=== PATIENT | male | born 1955 | race Caucasian/White ===

== ENCOUNTER 2023-03-17 00:41 | Day surgery (SDC) | payer MEDICARE, OTHER, SELFPAY ==
[2023-03-03 16:02] VITALS: BMI 27.3
--- NOTE | 2023-03-16 12:53 | PM.HPGS ---
History of Present Illness History of Present Illness Consent: Risks, benefits, and alternatives have been discussed and questions answered. Patient agrees to proceed with procedure. Chief complaint: neoplasm screening Narrative: Fabian Valle is a 67 year old male Was referred for colon cancer screening. His last colonoscopy was Five years ago.. He has family history of gastrointestinal malignancy, his father had GI neoplasm. Review of Systems Review of Systems: All systems reviewed & are unremarkable except as noted in HPI and below PMFSH Past Medical History Medical History BMI 27.0-27.9,adult BMI 30.0-30.9,adult Changing skin lesion Elevated lipids Nasal congestion Screening for lipid disorders Screening for prostate cancer Family History Family History Father Family history of malignant neoplasm of stomach Family history of coronary artery disease Mother Alcoholism Mental health disorder Sibling No problems noted. Social History Social History Smoking packs per day: 1 Smoking cigarettes per day: 20.0 Years smoked: 3 Smoking pack-years: 3.00 Smoking status: Former smoker Tobacco type: cigarettes Second hand tobacco smoke exposure: Yes Alcohol intake: never Substance use: never Substance use type: does not use Lack of Transportation: No Lack of Food: Never True Current Housing: I Have Housing Concerned About Future Housing: No Difficulty Paying Gas/Electric Bills: No Difficulty Paying for Meds: No Currently Unemployed: No Education: High School Diploma/GED Difficulty w/ Childcare or Family Care: No Living arrangements: with family Occupation/Education: retired 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 Gender identity (if verbalized by the patient): Male Spiritual care concerns: No Meds Home Medications and Allergies Home Medications Medication Instructions Recorded Confirmed Type No Home Medications 06/16/20 03/17/23 History Allergies Allergy/AdvReac Type Severity Reaction Status Date / Time No Known Allergies Allergy Verified 03/17/23 11:18 Exam Const: General: alert Orientation/consciousness: patient oriented x3 Resp: Auscultation: clear to auscultation bilaterally Cardio: Rhythm: regular rhythm GI: GI Palp: Yes Soft to palpation and No Tenderness to palpation present (GI) Neuro: General: patient oriented x3 Assessment and Plan Assessment and plan (1) Colon cancer screening: Code(s): Z12.11 - Encounter for screening for malignant neoplasm of colon Status: Acute Assessment and Plan: Colonoscopy with possible biopsy or polypectomy or cautery or injection of substances.
[2023-03-17 11:19] VITALS: BP 115/75; PULSE 75; RESP 16; TEMP 36.2; O2SAT 98
[2023-03-17] MEDS: LACTATED RINGERS 1,000 ML 150 ML IV CONT (11:29)
--- NOTE | 2023-03-17 11:33 | P.PNAN_ITS ---
Anes - Initial Pre Proc Eval Procedure: Operation Date: 03/17/23 12:30 Proposed Procedures p Screening Colonoscopy - Greg Oquendo MD Date/Time: 03/17/23 11:33 Surgeon: Greg Oquendo MD Pre Op Diagnosis: neoplasm screening Patient Data Age: 67 Gender: M Height: 1.75 m Weight: 82.5 kg Last Vital Signs Temp 97.2 F L 03/17/23 11:19 Pulse 75 03/17/23 11:19 Resp 16 03/17/23 11:19 BP 115/75 03/17/23 11:19 Pulse Ox 98 03/17/23 11:19 O2 Del Method Room Air 03/17/23 11:19 Allergies Allergy/AdvReac Type Severity Reaction Status Date / Time No Known Allergies Allergy Verified 03/17/23 11:18 Home Medications Medication Instructions Recorded Confirmed Type No Home Medications 06/16/20 03/17/23 History Patient hx anesthesia problems: none Family hx anesthesia problems: none Results Review: All pre-operative results and documents have been reviewed as part of the pre- operative evaluation. [facility] Past Medical History Medical History (Updated 03/16/23 @ 12:53 by Greg Oquendo MD) BMI 27.0-27.9,adult BMI 30.0-30.9,adult Changing skin lesion Elevated lipids Nasal congestion Screening for lipid disorders Screening for prostate cancer Family History Family History Father Family history of malignant neoplasm of stomach Family history of coronary artery disease Mother Alcoholism Mental health disorder Sibling No problems noted. Social History Social History Smoking packs per day: 1 Smoking cigarettes per day: 20.0 Years smoked: 3 Smoking pack-years: 3.00 Smoking status: Former smoker Tobacco type: cigarettes Second hand tobacco smoke exposure: Yes Alcohol intake: never Substance use: never Substance use type: does not use Lack of Transportation: No Lack of Food: Never True Current Housing: I Have Housing Concerned About Future Housing: No Difficulty Paying Gas/Electric Bills: No Difficulty Paying for Meds: No Currently Unemployed: No Education: High School Diploma/GED Difficulty w/ Childcare or Family Care: No Living arrangements: with family Occupation/Education: 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 Informed Consent: The patient's anesthetic plan and its attendant risks and benefits were discussed with the patient/family/POA. Questions were solicited and answers provided to the satisfaction of the patient/family/POA.
[2023-03-17] MEDS: SIMETHICONE ORAL SUSPENSION 20 MG/0.3 ML 30 ML BOTTLE 0.6 ML IRRIGATION (11:57)
[2023-03-17 12:08] VITALS: BP 97/68; PULSE 99; RESP 24; O2SAT 97
[2023-03-17 12:18] VITALS: BP 100/68; PULSE 79; RESP 24; O2SAT 97
[2023-03-17 12:28] VITALS: BP 116/83; PULSE 83; RESP 22; O2SAT 100
== END 2023-03-17 12:38 | disposition home or self-care (01) ==
PROVIDERS: PCP Family Medicine; Visit Provider Internal Medicine Gastroenterology
PROC: 0DJD8ZZ Inspection of Lower Intestinal Tract, Via Natural or Artificial Opening Endoscopic (ICD-10-PCS; CPT 45378; principal; 2023-03-17 12:30)
DX: Z12.11 Encounter for screening for malignant neoplasm of colon (principal); D12.2 Benign neoplasm of ascending colon; K64.8 Other hemorrhoids; K57.30 Diverticulosis of large intestine without perforation or abscess without bleeding; Z87.891 Personal history of nicotine dependence; Z86.010 Personal history of colon polyps; Z80.0 Family history of malignant neoplasm of digestive organs
CPT/HCPCS: 45380; 88305; J2704; J7120

== ENCOUNTER 2024-06-12 09:39 | Outpatient (CLI) | payer MEDICARE, OTHER, SELFPAY ==
--- NOTE | ~2024-06-12 | XR_ITS ---
Supine and upright views of the abdomen Clinical history: Diverticulosis Findings: Bowel gas pattern is nonspecific. No evidence for obstruction or free air. No abnormal mass lesion or calcification is seen. There is degenerative change of the lumbar spine. Impression: No significant abnormality is seen. Reviewed, dictated and finalized at [facility]. CHIEF Impression: No significant abnormality is seen.
--- OUTSIDE RECORDS SUMMARY | 2024-06-12 10:15 | XMS_ITS | Continuity of Care Document ---
Author Organization [facility] Address [address] [place] [address] [place] [address] Phone Care Team Providers Care Waiter Waitress Name Role Phone Misael Goodwin Unavailable Unavailable Procedures Procedure Date Office/outpatient Visit, Est Office/outpatient Visit, Est Office/outpatient Visit, Est Office/outpatient Visit, Est Office/outpatient Visit, Est Office/outpatient Visit, Est Eye Exam, New Patient Advance Directives Directive Yes / No Effective Date File Name No Information Encounters Encounter Description Practice Location Reason(s) For Visit Diagnoses Date Provider Providers Copied on Encounter Office/outpat ient Visit, [facility], [id number] [place] [address] [address], [place], [place], [id number], [place] tel:[phone] [facility] No Information 0-200 9 Blancoishlee Misael. [facility] [address], [address], [place]. tel:[phone] Referring Provider: Jeanette Gonsales OD, [address] [place], [address]. tel:[phone] Office/outpat ient Visit, [facility], [address] [place] [address] [address], [place], [place], [id number], [place] tel:[phone] [facility] No Information 6-200 9 Krishnaspj Misael. [address], [address], [place]. tel:[phone] Referring Provider: Jeanette Gonsales OD, [address] [place] [address], [address]. tel:[phone] Office/outpat ient Visit, [facility], [address] [place] [address] [address], [place], [place], [id number], [place] tel:[phone] [facility] No Information Dec-1 5-200 8 Krishnasamy Misael. [address] [facility] [address], [place], [place], [facility], [place]. tel:[phone] Referring Provider: Jeanette Gonsales OD, [address] [place] [address], [facility]. tel:[phone] Office/outpat ient Visit, [facility], [address] [place] [address] [address], [place], [place], [id number], [place] tel:[phone] [facility] No Information Nov-0 4-200 8 Krishnasamy Misael. [facility] [address] [facility], [place], [place], [facility], [place]. tel:[phone] Referring Provider: Jeanette Gonsales OD, [address] [place] [address], [address]. tel:[phone] Office/outpat ient Visit, [facility], [address] [place] [address] [address], [place], [place], [id number], [place] tel:[phone] [facility] No Information Sep-0 9-200 8 Krishnasamy Misael. [address] [place] [address], [place], [facility], [place]. tel:[phone] Referring Provider: Jeanette Gonsales OD, [address] [place], [address]. tel:[phone] Office/outpat ient Visit, [facility], [address], [place], [place], [id number], [place] tel:[phone] [facility] No Information 8 Christa Oharahil. [address], [address], . tel:[phone] Referring Provider: Jeanette Gonsales OD, [address] [place], [address]. tel:[phone] [facility], [address], [place], [place], [id number], tel:[phone] [facility] No Information 8 Christa Oharahil. [address], [address], . tel:[phone] Referring Provider: Jeanette Gonsales OD, [address] [place] [address], [address]. tel:[phone] Family History Family Member Type Diagnosis Age At Onset No Information Payers Payer name Insurance type Covered constitution party ID Authoriza tion(s) No Information Social History Type Description Quantity Date Captured Comments Sex Male Smoking Status No Information Chief Complaint And Reason For Visit No Information Reason For Referral Reason For Referral No Information History Of Present Illness Encounter Date Complaint History Of Prese nt Illness No Information Functional Status Date Functional Assessmen t No Information Instructions Date Instruction Additional Infor mation No Information Assessments Type Assessment Date No Information Patient Care Teams Name Effective Dates (start - stop) Status Members No Information
== END 2024-06-12 09:40 | disposition home or self-care (01) ==
LOC: ANHIMG 09:41
PROVIDERS: PCP Family Medicine; Visit Provider Family Medicine
DX: K57.90 Diverticulosis of intestine, part unspecified, without perforation or abscess without bleeding (principal)
CPT/HCPCS: 74018

== ENCOUNTER 2024-09-18 08:08 | Outpatient (CLI) | payer MEDICARE, OTHER, SELFPAY ==
--- NOTE | 2024-09-18 | ECG_ITS ---
Test Date: 2024-09-18 08:48:57 Measurements Intervals [place] Rate: 77 P: 63 [place]: 208 QRS: -16 QRSD: 144 T: 23 QT: 392 QTc: 444 Interpretive Statements SINUS RHYTHM POSSIBLE LEFT ATRIAL ENLARGEMENT [-0.1mV P-WAVE IN V1/V2] RIGHT BUNDLE BRANCH BLOCK [120+ ms QRS DURATION, UPRIGHT V1, 40+ ms S IN I/aVL/V4/V5/V6] No previous ECG available for comparison Electronically Signed On 09-18-2024 14:31:11 CDT by Jaqueline Valenzuela M.D.
--- NOTE | ~2024-09-18 | XR_ITS ---
XR abdomen/kub 1V 09/18/2024 09:13 INDICATION: Kidney stone TECHNIQUE: KUB COMPARISON: 06/12/2024 FINDINGS: Bowel gas pattern is normal. Moderate colonic fecal loading. There is no evidence of free a ir, mass, organomegaly, ascites or obstruction. No abnormal calculi are seen. The bones appear inta ct. IMPRESSION: 1: No acute abdominal abnormality identified. Reviewed, dictated and finalized at location A.
--- OUTSIDE RECORDS SUMMARY | 2024-09-18 08:22 | XMS_ITS | Clinical Summary ---
Author Organization [facility] Address [address] [place] [address] Care Team Providers Care Umbrella Repairer Name Role Phone Unavailable Primary Care Provider Unavailabl e Encounters Date Type Department Care Team Description 08/14/2024 External Device Data [facility] ABSTRACTION Provider, Abstract 08/14/2024 External Device Data [facility] ABSTRACTION Provider, Abstract 08/14/2024 External Device Data [facility] ABSTRACTION Provider, Abstract 08/09/2024 10:00 AM CDT Ancillary Procedure [facility] [address] [place] [address] Jack Maurer MD Urinary tract infection without hematuria, site unspecified from Last 3 Months Social History Tobacco Use Types Packs/Day Years Used Date Smoking Tobacco: Never Assessed Sex and Gender Information Value Date Recorded Sex Assigned at Not on file Legal Sex Male 1:44 PM CDT Gender Identity Not on file Sexual Orientation Not on file Plan of Treatment Health Maintenance Due Date Last Done Comments DTAP/TDAP/TD VACCINES (1 - Tdap) 1972 COLORECTAL SCREENING 1998 Colorectal Cancer Screening 1998 FIT-DNA Q 3 years 1998 FIT/FOBT Q 1 year 1998 Flex Sig/CT Colonography Q 5 years 1998 PNEUMOCOCCAL VACCINE 50+ YEARS (1 of 1 - PCV) 09/09/19 04 ZOSTER VACCINE (1 of 2) 09/09/2003 INFLUENZA VACCINE (#1) 2023 RSV VACCINE (60+ or ) (1 - 1-dose 75+ series) 2028 Procedures Procedure Name Priority Date/Time Associated Diagnosis Comments POC CREATININE Routine 08/09/2024 9:30 AM CDT Urinary tract infection without hematuria, site unspecified CT ABDOMEN PELVIS W WO CONTRAST Routine 08/09/2024 9:15 AM CDT Urinary tract infection without hematuria, site unspecified from Last 3 Months Results * POC CREATININE (08/09/2024 9:30 AM CDT) CREATININE POC 1.00 0.60 - 1.30 mg/dL 08/09/2024 9:30 AM CDT [facility] Comment:The GFR result is no t clinically significant on patients <18 or >70 years of age. GFR, >60 mL/min/1.7 3 sq meter 08/09/2024 9:30 AM CDT [facility] GFR POC >60 mL/min/1.7 3 sq meter 08/09/2024 9:30 AM CDT [facility] Comment: eGFR has not been validated for use in the elderly (> 70 years of age), women, patients with serious co-morbid conditions, or persons with extremes of body size or muscle mass and should also be interpreted with caution in patients with acute kidney failure, dialysis dependent patients, patients reporting exceptional dietary intake (e.g. vegetarian diet, high protein diets, creatine supplementation), and patients with severe liver disease. Based on National Kidney Disease Education Program If patient is , please refer to the GFR result. Blood, whole 08/09/2024 9:30 AM CDT 08/09/2024 9:32 AM CDT us Jack Maurer MD POINT OF CARE TESTING Madeleine ferguson Result [facility] CLIA# [id number] [address] [place] [address] * CT ABDOMEN PELVIS W WO CONTRAST (08/09/2024 9:15 AM CDT) Anatomical Region Laterality Modality Abdomen Computed Tomogra phy 08/09/2024 9:35 AM CDT Impressions 08/09/2024 10:45 AM CDT IMPRESSION: 1. 6.5 mm calculus in the distal left ureter proximal to the ureterovesical junction with minimal left hydroureter and no evidence of left hydronephrosis. 2. No evidence of renal calculi. 3. 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 4. Small left renal cysts appear to be Bosniak class I. 5. Mildly enlarged prostate. 6. Numerous hepatic cysts. 7. Colonic diverticulosis without evidence of acute diverticulitis. Narrative 08/09/2024 10:45 AM CDT EXAM: CT ABDOMEN PELVIS W WO CONTRAST DATE: 08/09/2024 CLINICAL HISTORY: Urinary tract infection TECHNIQUE: Both prior to and after the uneventful intravenous administration of IOPAMIDOL 61 % INTRAVENOUS SOLUTION (SINGLE USE VIAL) Given:100 mL, computed tomographic images of the abdomen and pelvis were obtained in the axial plane. Coronal and sagittal reformatted images were performed. No prior study is available for comparison. Findings: The visible portions of the lung bases are clear. Multiple cysts involve both hepatic lobes, measuring up to 2.2 cm. The gallbladder, spleen, pancreas and adrenal glands are normal. No calculi are identified in the kidneys and there is no evidence of hydronephrosis or perinephric fluid. A 6 mm cyst in the anterior aspect of the lower pole of the left kidney appears to be simple in nature. A 4 mm cyst is also present in the upper pole of the left kidney (images 71-72 of series 3 and image 85 of series 601) without evidence of suspicious feature. There is no evidence of cystic or solid renal mass. A 6.5 mm calculus is present in the lower left ureter approximately 1.7 cm proximal to the ureterovesical junction. There is very mild left ureteral dilatation proximal to the level of the calculus and no evidence of left hydronephrosis. The right ureter is normal without evidence of dilatation or calculus. There is at least moderate irregular bladder wall thickening of the anterior superior bladder wall. A small focus of air is present in the nondependent aspect of the bladder. There is evidence of a fistulous connection between a sigmoid diverticulum and the left anterior superior bladder wall (best seen on images 146-152 of series 3, images 106-113 of series 602 and images 63-70 of series 601). No calculi are identified within the bladder lumen. Multiple calcifications are present in the prostate, which measures 4.8 cm in width. Numerous diverticula are present in the sigmoid and distal descending colon. There is mild wall thickening of the sigmoid colon in the area of colovesical fistula. The small bowel loops are normal without evidence of dilatation or wall thickening. A normal appendix is present in the right lower quadrant. The vascular structures of the abdomen and pelvis are patent. Scattered areas of atherosclerotic calcifications are present in the burgos of the aorta and iliac arteries. There is no free fluid or air. There is no abdominal or pelvic adenopathy. A small fat-containing left inguinal hernia and a small fat-containing umbilical hernia are present. There is mild retrolisthesis L2 on L3, L4 on L5 and L5 on S1. Multilevel degenerative disc disease in the visible portion of the spine is most severe at L5-S1. Bilateral facet osteoarthritis at multiple levels in the lumbar spine is most severe at L3-L4 and L4-L5. There is moderate right and mild left hip osteoarthritis. Procedure Note Rachel White MD - 08/09/2024 EXAM: CT ABDOMEN PELVIS W WO CONTRAST DATE: 08/09/2024 CLINICAL HISTORY: Urinary tract infection TECHNIQUE: Both prior to and after the uneventful intravenous administration of IOPAMIDOL 61 % INTRAVENOUS SOLUTION (SINGLE USE VIAL) Given:100 mL, computed tomographic images of the abdomen and pelvis were obtained in the axial plane. Coronal and sagittal reformatted images were performed. No prior study is available for comparison. Findings: The visible portions of the lung bases are clear. Multiple cysts involve both hepatic lobes, measuring up to 2.2 cm. The gallbladder, spleen, pancreas and adrenal glands are normal. No calculi are identified in the kidneys and there is no evidence of hydronephrosis or perinephric fluid. A 6 mm cyst in the anterior aspect of the lower pole of the left kidney appears to be simple in nature. A 4 mm cyst is also present in the upper pole of the left kidney (images 71-72 of series 3 and image 85 of series 601) without evidence of suspicious feature. There is no evidence of cystic or solid renal mass. A 6.5 mm calculus is present in the lower left ureter approximately 1.7 cm proximal to the ureterovesical junction. There is very mild left ureteral dilatation proximal to the level of the calculus and no evidence of left hydronephrosis. The right ureter is normal without evidence of dilatation or calculus. There is at least moderate irregular bladder wall thickening of the anterior superior bladder wall. A small focus of air is present in the nondependent aspect of the bladder. There is evidence of a fistulous connection between a sigmoid diverticulum and the left anterior superior bladder wall (best seen on images 146-152 of series 3, images 106-113 of series 602 and images 63-70 of series 601). No calculi are identified within the bladder lumen. Multiple calcifications are present in the prostate, which measures 4.8 cm in width. Numerous diverticula are present in the sigmoid and distal descending colon. There is mild wall thickening of the sigmoid colon in the area of colovesical fistula. The small bowel loops are normal without evidence of dilatation or wall thickening. A normal appendix is present in the right lower quadrant. The vascular structures of the abdomen and pelvis are patent. Scattered areas of atherosclerotic calcifications are present in the burgos of the aorta and iliac arteries. There is no free fluid or air. There is no abdominal or pelvic adenopathy. A small fat-containing left inguinal hernia and a small fat-containing umbilical hernia are present. There is mild retrolisthesis L2 on L3, L4 on L5 and L5 on S1. Multilevel degenerative disc disease in the visible portion of the spine is most severe at L5-S1. Bilateral facet osteoarthritis at multiple levels in the lumbar spine is most severe at L3-L4 and L4-L5. There is moderate right and mild left hip osteoarthritis. IMPRESSION: 1. 6.5 mm calculus in the distal left ureter proximal to the ureterovesical junction with minimal left hydroureter and no evidence of left hydronephrosis. 2. No evidence of renal calculi. 3. 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 4. Small left renal cysts appear to be Bosniak class I. 5. Mildly enlarged prostate. 6. Numerous hepatic cysts. 7. Colonic diverticulosis without evidence of acute diverticulitis. us Jack Maurer MD CT ORDERABLES Final Resu lt from Last 3 Months Insurance MEDICARE PART A AND B GENERIC PAYOR
--- OUTSIDE RECORDS SUMMARY | 2024-09-18 08:22 | XMS_ITS | Continuity of Care Document ---
Author Organization [facility] Address [address] [place] [address] [place] [address] Phone Care Team Providers Care Final Inspector Paper Name Role Phone Misael Goodwin Unavailable Unavailable Procedures Procedure Date Office/outpatient Visit, Est Office/outpatient Visit, Est Office/outpatient Visit, Est Office/outpatient Visit, Est Office/outpatient Visit, Est Office/outpatient Visit, Est Eye Exam, New Patient Advance Directives Directive Yes / No Effective Date File Name No Information Encounters Encounter Description Practice Location Reason(s) For Visit Diagnoses Date Provider Providers Copied on Encounter Office/outpat ient Visit, [facility] [place], [address] [place] [address] [address], [place], [place], [id number], [place] tel:[phone] [facility] No Information 0200 9 Blancoishlee Misael. [facility] [address], [address], [place]. tel:[phone] Referring Provider: Jeanette Gonsales OD, [address] [place], [address]. tel:[phone] Office/outpat ient Visit, [facility] [place], [address] [place] [address] [address], [place], [place], [id number], [place] tel:[phone] [facility] No Information 6-200 9 Krishnaspj Misael. [address], [address], [place]. tel:[phone] Referring Provider: Jeanette Gonsales OD, [address] [place] [address], [address]. tel:[phone] Office/outpat ient Visit, [facility], [address] [place] [address] [address], [place], [place], [id number], [place] tel:[phone] [facility] No Information Dec-1 5-200 8 Krishnasamy Misael. [address] [facility] [address], [place], [place], [facility], [place]. tel:[phone] Referring Provider: Jeanette Gonsales OD, [address] [place] [address], [facility]. tel:[phone] Office/outpat ient Visit, [facility], [address] [place] [address] [address], [place], [place], [id number], [place] tel:[phone] [facility] No Information Nov-0 4-200 8 Krishnasamy Misael. [facility] [address] [facility], [place], [place], [facility], [place]. tel:[phone] Referring Provider: Jeanette Gonsales OD, [address] [place] [address], [address]. tel:[phone] Office/outpat ient Visit, [facility], [address] [place] [address] [address], [place], [place], [address], [place] tel:[phone] [facility] No Information Sep-0 9-200 8 Krishnasamy Misael. [address] [place] [address], [place], [facility], [place]. tel:[phone] Referring Provider: Jeanette Gonsales OD, [address] [place], [address]. tel:[phone] Office/outpat ient Visit, [facility], [address], [place], [place], [address], [place] tel:[phone] SEC [facility] No Information 8 Christa Oharahil. [address], [address], . tel:[phone] Referring Provider: Jeanette Gonsales OD, [address] [place], [address]. tel:[phone] [facility], [address] [facility] [address], [place], [place], [id number], tel:[phone] SEC [facility] No Information 8 Christa Oharahil. [address], [address], . tel:[phone] Referring Provider: Jeanette Gonsales OD, [address] [place] [address], [address]. tel:[phone] Family History Family Member Type Diagnosis Age At Onset No Information Payers Payer name Insurance type Covered democrat ID Authoriza tion(s) No Information Social History [...]
[2024-09-18 08:50] LABS: Basophils Absolute Auto 0.1 K/mm3 (0.0-0.1); Basophils Percent Auto 0.5 % (0.2-1.2); Eosinophils Absolute Auto 0.2 K/mm3 (0-0.3); Eosinophils Percent Auto 1.7 % (0-4.4); Hematocrit 46.3 % (42.0-52.0); Hemoglobin 15.3 g/dL (14.0-18.0); Immature Granulocyte Absolute 0.05 K/mm3 (0.00-0.031); Immature Granulocyte Percent A 0.4 % (0-0.5); Lymphocytes Absolute Auto 1.39 K/mm3 (0.9-3.2); Lymphocytes Percent Auto 10.9 % (18.3-44.2); Mean Corpuscular Hemoglobin 31.1 pg (26-34); Mean Corpuscular Volume 94.1 fl (80-100); Mean Platelet Volume 9.5 fl (7.4-10.4); Monocytes Absolute Auto 1.3 K/mm3 (0.1-0.6); Monocytes Percent Auto 10.6 % (2.6-8.5); Neutrophils Absolute Auto 9.6 K/mm3 (1.3-6.7); Neutrophils Percent Auto 75.9 % (45.5-73.1); Platelet Count Result 223 k/mm3 (150-375); Red Blood Count 4.92 M/mm3 (4.6-6.20); Red Cell Distribution Width 13.4 % (11.5-14.5); White Blood Count 12.7 K/mm3 (4.5-10.0)
[2024-09-18 09:03] LABS: Anion Gap 6 mmol/L (4-12); Blood Urea Nitrogen 9 mg/dL (9-20); Calcium 9.8 mg/dL (8.4-10.2); Carbon Dioxide 33 mmol/L (22-30); Chloride 100 mmol/L (98-107); Estimated Glomerular Filt Rate > 60; Glucose 110 mg/dL (65-110); Potassium 4.1 mmol/L (3.4-5.0); Sodium 139 mmol/L (137-145)
== END 2024-09-18 08:09 | disposition home or self-care (01) ==
LOC: ANHLAB 08:16
PROVIDERS: PCP Family Medicine; Visit Provider Urology
DX: N20.0 Calculus of kidney (principal); I45.10 Unspecified right bundle-branch block
CPT/HCPCS: 36415; 74018; 80048; 85025; 87086; 93005

== ENCOUNTER 2024-09-29 19:19 | Emergency (ER) | payer MEDICARE, OTHER, SELFPAY ==
--- OUTSIDE RECORDS SUMMARY | 2024-09-29 19:21 | XMS_ITS | Continuity of Care Document ---
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 Name Role Phone Misael Goodwin Unavailable Unavailable Procedures Procedure Date Office/outpatient Visit, Est Office/outpatient Visit, Est Office/outpatient Visit, Est Office/outpatient Visit, Est Office/outpatient Visit, Est Office/outpatient Visit, Est Eye Exam, New Patient Advance Directives Directive Yes / No Effective Date File Name No Information Encounters Encounter Description Practice Location Reason(s) For Visit Diagnoses Date Provider Providers Copied on Encounter Office/outpat ient Visit, [facility], [address] [place] [address] [address], [place], [place], [id number], [place] tel:[phone] [facility] No Information 0-200 9 Blancoishlee Misael. [facility] [address], [address], [place]. tel:[phone] Referring Provider: Jeanette Gonsales OD, [address] [place], [address]. tel:[phone] Office/outpat ient Visit, [facility], [address] [place] [address] [address], [place], [place], [address], [place] tel:[phone] [facility] [place] No Information 6-200 9 Krishnaspj Misael. [address], [address], [place]. tel:[phone] Referring Provider: Jeanette Gonsales OD, [address] [place] [address], [address]. tel:[phone] Office/outpat ient Visit, [facility], [address] [place] [address] [address], [place], [place], [address], [place] tel:[phone] [facility] No Information Dec-1 5-200 8 Krishnasamy Misael. 2421 [facility] [place] [address], [place], [place], [facility], [place]. tel:[phone] Referring Provider: Jeanette Gonsales OD, [address] [place] [address], [facility] hospital. tel:[phone] Office/outpat ient Visit, [facility], [address] [place] [address] [address], [place], [place], [id number], [place] tel:[phone] [facility] No Information Nov-0 4-200 8 Krishnasamy Misael. [facility] [address] [facility], [place], [place], [facility], [place]. tel:[phone] Referring Provider: Jeanette Gonsales OD, [address] [place] [address], [address]. tel:[phone] Office/outpat ient Visit, [facility], [address] [place] [address] [address], [place], [place], [id number], [place] tel:[phone] [facility] No Information Sep-0 9-200 8 Krishnasamy Misael. [address] [place] [address], [place], [facility], [place]. tel:[phone] Referring Provider: Jeanette Gonsales OD, [address] [place], [address]. tel:[phone] Office/outpat ient Visit, [facility], [address], [place], [place], [address], [place] tel:[phone] [facility] No Information 8 Christa Oharahil. [address], [address], . tel:[phone] Referring Provider: Jeanette Gonsales OD, [address] [place], [address]. tel:[phone] [facility], [address] [facility], [place], [place], [address], tel:[phone] SEC [facility] No Information 8 Christa Oharahil. [address], [address], . tel:[phone] Referring Provider: Jeanette Gonsales OD, [address] [place] [address], [address]. tel:[phone] Family History Family Member Type Diagnosis Age [...]
--- OUTSIDE RECORDS SUMMARY | 2024-09-29 19:21 | XMS_ITS | Clinical Summary ---
Author Organization [facility] Address [address] [place] [address] Care Team Providers Care Power Project Manager Name Role Phone Unavailable Primary Care Provider Unavailabl e Encounters Date Type Department Care Team Description 08/14/2024 External Device Data STL ABSTRACTION Provider, Abstract 08/14/2024 External Device Data STL ABSTRACTION Provider, Abstract 08/14/2024 External Device Data STL ABSTRACTION Provider, Abstract 08/09/2024 10:00 AM CDT Ancillary Procedure [facility] [address] [place] [address] Jack Maurer MD Urinary tract [...] - 1.30 mg/dL 08/09/2024 9:30 AM CDT [facility] Comment:The GFR result is no t clinically significant on patients <18 or >70 years of age. GFR, >60 mL/min/1.7 3 sq meter 08/09/2024 9:30 AM CDT [facility] GFR POC >60 mL/min/1.7 3 sq meter 08/09/2024 9:30 AM CDT [facility] Comment: eGFR has not been validated for [...] POINT OF CARE TESTING Madeleine ferguson Result [facility] CLIA# [id number] [address] [place] [address] * CT ABDOMEN PELVIS W [...] MEDICARE PART A AND B GENERIC PAYOR [facility] Address: [address] [address]
[2024-09-29 20:14] VITALS: BP 107/73; PULSE 90; RESP 16; TEMP 37; O2SAT 98
[2024-09-29 22:37] VITALS: BP 116/72; PULSE 88; RESP 16; O2SAT 99
[2024-09-29 22:45] VITALS: BP 105/71; PULSE 85; RESP 18; O2SAT 100
[2024-09-29 23:00] VITALS: BP 110/71; PULSE 91; RESP 19; O2SAT 98
--- OUTSIDE RECORDS SUMMARY | 2024-09-29 23:07 | XMS_ITS | Clinical Summary ---
Author Organization [facility] Address [address] [place] [address] Care Team Providers Care Cigar Wrapper Name Role Phone Unavailable Primary Care Provider Unavailabl e Encounters Date Type Department Care Team Description 08/14/2024 External Device Data STL ABSTRACTION Provider, Abstract 08/14/2024 External Device Data STL ABSTRACTION Provider, Abstract 08/14/2024 External Device Data STL ABSTRACTION Provider, Abstract 08/09/2024 10:00 AM CDT Ancillary Procedure [facility] [address] [place] [address] Jack Maurer MD Urinary tract [...] - 1.30 mg/dL 08/09/2024 9:30 AM CDT [facility] Comment:The GFR result is no t clinically significant on patients <18 or >70 years of age. GFR, >60 mL/min/1.7 3 sq meter 08/09/2024 9:30 AM CDT [facility] GFR POC >60 mL/min/1.7 3 sq meter 08/09/2024 9:30 AM CDT [facility] Comment: eGFR has not been validated for [...] POINT OF CARE TESTING Madeleine ferguson Result [facility] CLIA# [id number] [address] [place] [address] * CT ABDOMEN PELVIS W [...] MEDICARE PART A AND B GENERIC PAYOR [facility] Address: [address] [address]
--- OUTSIDE RECORDS SUMMARY | 2024-09-29 23:07 | XMS_ITS | Continuity of Care Document ---
Author Organization [facility] Address [address] [place] [address] [place] [address] Phone Care Team Providers Care Rn Lvn Name Role Phone Misael Goodwin Unavailable Unavailable Procedures Procedure Date Office/outpatient Visit, Est Office/outpatient Visit, Est Office/outpatient Visit, Est Office/outpatient Visit, Est Office/outpatient Visit, Est Office/outpatient Visit, Est Eye Exam, New Patient Advance Directives Directive Yes / No Effective Date File Name No Information Encounters Encounter Description Practice Location Reason(s) For Visit Diagnoses Date Provider Providers Copied on Encounter Office/outpat ient Visit, [facility] [place], [address] [place] [address] [address], [place], [place], [address], [place] tel:[phone] [facility]3] No Information 0-200 9 Blancoishlee Misael. [facility] [address], [address], [place]. tel:[phone] Referring Provider: Jeanette Gonsales OD, [address] [place], [address]. tel:[phone] Office/outpat ient Visit, [facility], [address] [place] [address] [address], [place], [place], [address], [place] tel:[phone] [facility] [place] No Information 6-200 9 Krishnaspj Misael. [address], [address], [place]. tel:[phone] Referring Provider: Jeanette Gonsales OD, [address] [place] [address], [address]. tel:[phone] Office/outpat ient Visit, [facility], [address] [place] [address] [address], [place], [place], [address], [place] tel:[phone] [facility] No Information Dec-1 5-200 8 Krishnasamy Misael. 2421 [facility] [place] [address], [place], [place], [facility], [place]. tel:[phone] Referring Provider: Jeanette Gonsales OD, [address] [place] [address], [facility]. tel:[phone] Office/outpat ient Visit, [facility], [address] [place] [address] [address], [place], [place], [address], [place] tel:[phone] [facility] No Information Nov-0 4-200 8 Krishnasamy Misael. [facility] [address] [facility], [place], [place], [facility], [place]. tel:[phone] Referring Provider: Jeanette Gonsales OD, [address] [place] [address], [address]. tel:[phone] Office/outpat ient Visit, [facility], [address] [place] [address] [address], [place], [place], [address], [place] tel:[phone] [facility] No Information Sep-0 9-200 8 Krishnasamy Misael. [address] [place] [address], [place], [facility], [place]. tel:[phone] Referring Provider: Jeanette Gonsales OD, [address] [place], [address]. tel:[phone] Office/outpat ient Visit, [facility], [address], [place], [place], [address], [place] tel:[phone] [facility] No Information 8 Christa Oharahil. [address], [address], . tel:[phone] Referring Provider: Jeanette Gonsales OD, [address] [place], [address]. tel:[phone] [facility], [address] [facility] [address], [place], [place], [address], tel:[phone] [facility] No Information 8 Christa Oharahil. [address], [address], . tel:[phone] Referring Provider: Jeanette Gonsales OD, [address] [place] [address], [address]. tel:[phone] Family History Family Member Type Diagnosis Age [...]
[2024-09-29 23:22] LABS: Basophils Percent Auto 0.2 % (0.2-1.2); Eosinophils Absolute Auto 0.1 K/mm3 (0-0.3); Eosinophils Percent Auto 0.6 % (0-4.4); Hematocrit 45.5 % (42.0-52.0); Hemoglobin 14.5 g/dL (14.0-18.0); Immature Granulocyte Absolute 0.05 K/mm3 (0.00-0.031); Immature Granulocyte Percent A 0.4 % (0-0.5); Lymphocytes Absolute Auto 0.97 K/mm3 (0.9-3.2); Lymphocytes Percent Auto 7.3 % (18.3-44.2); Mean Corpuscular HGB Conc 31.9 g/dl (32-36); Mean Corpuscular Hemoglobin 30.5 pg (26-34); Mean Corpuscular Volume 95.8 fl (80-100); Mean Platelet Volume 9.4 fl (7.4-10.4); Monocytes Absolute Auto 2.2 K/mm3 (0.1-0.6); Monocytes Percent Auto 16.5 % (2.6-8.5); Platelet Count Result 170 k/mm3 (150-375); Red Blood Count 4.75 M/mm3 (4.6-6.20); White Blood Count 13.4 K/mm3 (4.5-10.0)
[2024-09-29 23:27] LABS: Add Urine Microscopic? YES; Appearance Urine Cloudy (Clear); Bacteria Urine None Seen /hpf; Bilirubin Urine Negative (Negative); Blood Urine 2+ (Negative); Color Urine Yellow (Yellow); Glucose Urine UA Negative (Negative); Ketones Urine Negative (Negative); Leukocyte Esterase Ur 3+ LEU/UL (Negative); Nitrate Urine Negative (Negative); Non Pathogenic Casts 0-2; Protein Urine 1+ mg/dL (Negative); Specific Grav Ur 1.013 (1.001-1.035); Squamous Epithelial Cell Urine None Seen /hpf (Few); WBC Urine >100 /hpf (0-3)
--- NOTE | 2024-09-29 23:33 | ED_ITS ---
HPI - Fever General Chief Complaint: Fever Stated Complaint: fever, chills Time Seen by Provider: 09/29/24 22:49 History of Present Illness HPI Narrative: Patient had recent kidney stone removed several days ago and started having fevers, told his urologist who called him some ciprofloxacin, has taken a few doses, still having fevers so urologist told him to come to the hospital. No significant flank pain. Has been taking ibuprofen. Related Data Allergies Allergy/AdvReac Type Severity Reaction Status Date / Time No Known Allergies Allergy Verified 06/12/24 07:22 Review of Systems 2 Review of Systems: All systems reviewed & are unremarkable except as noted in HPI and below PMFSH Past Medical History Medical History (Updated 09/30/24 @ 00:08 by Sherrie Vieira MD) Changing skin lesion BMI 30.0-30.9,adult Elevated lipids Nasal congestion Screening for prostate cancer Screening for lipid disorders BMI 27.0-27.9,adult Family History Family History Father Family history of malignant neoplasm of stomach Family history of coronary artery disease Mother Alcoholism Mental health disorder Sibling No problems noted. Social History Social History Smoking packs per day: 1 Smoking cigarettes per day: 20.0 Years smoked: 3 Smoking pack-years: 3.00 Smoking status: Former smoker Tobacco type: cigarettes Second hand tobacco smoke exposure: Yes Alcohol intake: never Substance use: never Substance use type: does not use Lack of Transportation: No Lack of Food: Never True Current Housing: I Have Housing Concerned About Future Housing: No Difficulty Paying Gas/Electric Bills: No Difficulty Paying for Meds: No Currently Unemployed: No Education: High School Diploma/GED Difficulty w/ Childcare or Family Care: No Living arrangements: with family Occupation/Education: retired 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 EYES: EOMI, conjunctiva normal ENT: Hearing grossly intact LUNGS: Nonlabored breathing. HEART: [Regular rate and rhythm] ABD: [Soft], [nontender to palpation]; no CVA tenderness EXT: Normal range of motion SKIN: [No rashes or lesions.] NEURO: [Alert and oriented x 3. No gross focal sensory or strength deficits.] PSYCH: Normal affect Course Vital Signs Vital signs: Vital Signs Temperature 98.6 F 09/29/24 20:14 Pulse Rate 90 09/29/24 20:14 Respiratory Rate 16 09/29/24 20:14 Blood Pressure 107/73 09/29/24 20:14 Pulse Oximetry 98 09/29/24 20:14 Oxygen Delivery Room Air 09/29/24 20:14 Temperature 99.1 F 09/29/24 23:57 Pulse Rate 94 09/30/24 00:00 Respiratory Rate 15 09/30/24 00:00 Blood Pressure 117/75 09/30/24 00:00 Pulse Oximetry 97 09/30/24 00:00 Oxygen Delivery Room Air 09/29/24 20:14 MDM - Fever MDM Narrative Medical decision making narrative: Patient still had recent kidney stone removal with stent placement presents here after noticing persistent fever, he has no pain, been taking Tylenol or ibuprofen, called his urologist who started him on ciprofloxacin, and since he was still having persistent fevers he was told to come to the emergency room today. Vital signs have been stable here, he is well-appearing with no flank pain. White count was 14, urinalysis shows large WBCs, this may be from recent procedure however I did order dose of IV ceftriaxone and IV fluids, and called urologist on-call who reviewed the labs from today and the operative report, agrees that if the patient has normal vital signs which he does, and looks well here which he does, he has been cracking jokes in the room, he is agreeable to following up with the urologist on Tuesday and I did let him in know that if he were to get worse he needs to return to the ER immediately. They are agreeable to this plan. Lab Data 09/29/24 23:08 09/29/24 23:08 Labs: Lab Results 09/29/24 Range/Units 23:08 WBC 13.4 H (4.5-10.0) K/mm3 RBC 4.75 (4.6-6.20) M/mm3 Hgb 14.5 (14.0-18.0) g/dL Hct 45.5 (42.0-52.0) % MCV 95.8 (80-100) fl MCH 30.5 (26-34) pg MCHC 31.9 L (32-36) g/dl RDW 13.0 (11.5-14.5) % Plt Count 170 (150-375) k/mm3 MPV 9.4 (7.4-10.4) fl Immature Gran % (Auto) 0.4 (0-0.5) % Neut % (Auto) 75.0 H (45.5-73.1) % Lymph % (Auto) 7.3 L (18.3-44.2) % [place] % (Auto) 16.5 H (2.6-8.5) % Eos % (Auto) 0.6 (0-4.4) % Baso % (Auto) 0.2 (0.2-1.2) % Lymph # (Auto) 0.97 (0.9-3.2) K/mm3 [place] # (Auto) 2.2 H (0.1-0.6) K/mm3 Eos # (Auto) 0.1 (0-0.3) K/mm3 Baso # (Auto) 0.0 (0.0-0.1) K/mm3 Abs Immat Gran (auto) 0.05 H (0.00-0.031) K/mm3 Absolute Neuts (auto) 10.0 H (1.3-6.7) K/mm3 Absolute Nucleated RBC 0.000 (0.0-0.012) K/mm3 Nucleated RBC % 0.0 (0.0-0.2) % Sodium 137 (137-145) mmol/L Potassium 3.7 (3.4-5.0) mmol/L Chloride 100 (98-107) mmol/L Carbon Dioxide 30 (22-30) mmol/L Anion Gap 7 (4-12) mmol/L BUN 16 (9-20) mg/dL Creatinine 0.84 (0.7-1.3) mg/dL Estim Creat Clear Calc 73 ml/min Estimated GFR > 60 (59 - ) Glucose 99 (65-110) mg/dL Calcium 9.0 (8.4-10.2) mg/dL Urine Color Yellow (Yellow) Urine Appearance Cloudy H (Clear) Urine pH 6.0 (5.0-9.0) Ur Specific [place] 1.013 (1.001-1.035) Urine Protein 1+ H (Negative) mg/dL Urine Glucose (UA) Negative (Negative) mg/dL Urine Ketones Negative (Negative) mg/dL Ur Blood (Man) 2+ H (Negative) Urine Nitrate Negative (Negative) Urine Bilirubin Negative (Negative) Urine Urobilinogen 1.0 (<2.0) mg/dL Leukocyte Esterase Rfl 3+ H (Negative) TAY/UL Urine RBC 6-10 H (0-2) /hpf Urine WBC >100 H (0-3) /hpf Ur Squamous Epith Cells None seen (Few) /hpf Urine Bacteria None seen /hpf Urine Casts 0-2 Discharge Plan Discharge Clinical Impression: Acute UTI, Fever Patient Disposition: Home Condition: Stable Instructions: Urinary Tract Infection in Men (ED) Additional Instructions: Continue taking the antibiotics your prescribed, make sure your keeping hydrated, you can take Tylenol also for your fevers, and call the urologist's office on Tuesday morning for recheck. If you have any worsening symptoms please come back to the hospital. Patient Language: Liberian Prescriptions: No Action sulfamethoxazole-trimethoprim [Bactrim DS] 800-160 mg tablet 1 tablet PO Q12H Qty: 14 0RF Follow-up/Referrals: Connor Senior MD [Primary Care Provider] -
[2024-09-29 23:36] LABS: Anion Gap 7 mmol/L (4-12); Blood Urea Nitrogen 16 mg/dL (9-20); Carbon Dioxide 30 mmol/L (22-30); Chloride 100 mmol/L (98-107); Estimated CRCL calculation 73 ml/min; Estimated Glomerular Filt Rate > 60; Glucose 99 mg/dL (65-110); Potassium 3.7 mmol/L (3.4-5.0); Sodium 137 mmol/L (137-145)
[2024-09-29] MEDS: cefTRIAXone 2 GM/NS 100 ML 2 GM/100 ML BAG IVPB (23:51)
[2024-09-29 23:57] VITALS: TEMP 37.3
[2024-09-30] VITALS: BP 117/75; PULSE 94; RESP 15; O2SAT 97
[2024-09-30] MEDS: LACTATED RINGERS 1,000 ML 999 ML IV CONT (00:21)
[2024-09-30 01:00] VITALS: BP 123/75; PULSE 93; RESP 23; O2SAT 97
== END 2024-09-30 01:19 | disposition home or self-care (01) ==
PROVIDERS: Emergency Provider Emergency Medicine; PCP Family Medicine
DX: N39.0 Urinary tract infection, site not specified (principal); Z87.891 Personal history of nicotine dependence
CPT/HCPCS: 36415; 80048; 81001; 85025; 87086; 96365; 99284; J0696; J7120

== ENCOUNTER 2024-12-07 00:10 | Day surgery (SDC) | payer MEDICARE, OTHER, SELFPAY ==
[2024-12-05 13:40] VITALS: BMI 28.1
--- OUTSIDE RECORDS SUMMARY | 2024-12-07 00:12 | XMS_ITS | Clinical Summary ---
Author Organization [facility] Address [address] [place] [address] Care Team Providers Care Cruise Coordinator Name Role Phone Unavailable Primary Care Provider Unavailabl e Encounters Date Type Department Care Team Description 11/01/2024 8:55 AM CDT Ancillary Procedure [facility] [address] [place] [address] Jack Maurer MD Kidney stone 10/04/2024 External Device Data STL ABSTRACTION Provider, Abstract 10/03/2024 External Device Data STL ABSTRACTION Provider, Abstract 10/02/2024 External Device Data STL ABSTRACTION Provider, Abstract from Last 3 Months Social History Tobacco [...] (1 of 2) 09/09/2003 INFLUENZA VACCINE (#1) 2024 RSV VACCINE (60+ or ) (1 - 1-dose 75+ series) 2028 Procedures Procedure Name Priority Date/Time Associated Diagnosis Comments XR ABDOMEN 1 VW Routine 11/01/2024 8:52 AM CDT Kidney stone from Last 3 Months Results * XR ABDOMEN 1 VW (11/01/2024 8:52 AM CDT) Anatomical Region Laterality Modality Abdomen Computed Radiogr aphy 11/01/2024 8:52 AM CDT Impressions 11/01/2024 9:35 AM CDT IMPRESSION: 1. No kidney stones noted. Narrative 11/01/2024 9:35 AM CDT EXAM: XR ABDOMEN 1 VW DATE: 11/01/2024 HISTORY: Kidney stone COMPARISON: None. FINDINGS: The bowel gas pattern is nonobstructive. No pathologic calcifications are seen. Procedure Note Shiva Merino MD - 11/01/2024 EXAM: XR ABDOMEN 1 VW DATE: 11/01/2024 HISTORY: Kidney stone COMPARISON: None. FINDINGS: The bowel gas pattern is nonobstructive. No pathologic calcifications are seen. IMPRESSION: 1. No kidney stones noted. Jack Maurer MD DIAGNOSTIC IMAGING ORDERAB LES Final Result from Last 3 Months Insurance MEDICARE PART A AND B GENERIC PAYOR
--- OUTSIDE RECORDS SUMMARY | 2024-12-07 00:13 | XMS_ITS | Continuity of Care Document ---
Author Organization [facility] Address [address] [place] [address] [place] [address] Phone Care Team Providers Care Director Of Aviation Name Role Phone Misael Goodwin Unavailable Unavailable Procedures Procedure Date Office/outpatient Visit, Est Office/outpatient Visit, Est Office/outpatient Visit, Est Office/outpatient Visit, Est Office/outpatient Visit, Est Office/outpatient Visit, Est Eye Exam, New Patient Advance Directives Directive Yes / No Effective Date File Name No Information Encounters Encounter Description Practice Location Reason(s) For Visit Diagnoses Date Provider Providers Copied on Encounter Office/outpat ient Visit, [facility] [place] [place], [address] [place] [address] [address], [place], [place], [id number], [place] tel:[phone] [facility] No Information 0-200 9 Blancoishlee Misael. [facility] [address], [address], [place]. tel:[phone] Referring Provider: Jaenette Gonsales OD, [address] [place], [address]. tel:[phone] Office/outpat ient Visit, [facility] [place] [place], [address] [place] [address] [address], [place], [place], [id number], [place] tel:[phone] [facility] [place] No Information 6-200 9 Krishnaspj Misael. [address], [address], [place]. tel:[phone] Referring Provider: Jeanette Gonsales OD, [address] [place] [address], [address]. tel:[phone] Office/outpat ient Visit, [facility], [address] [place] [address] [address], [place], [place], [id number], [place] tel:[phone] [facility] No Information Dec-1 5-200 8 Krishnasamy Misael. 2421 [facility] [place] [address], [place], [place], [facility], [place]. tel:[phone] Referring Provider: Jeanette Gonsales OD, [address] [place] [address], [facility]. tel:[phone] Office/outpat ient Visit, [facility], [address] [place] [address] [address], [place], [place], [id number], [place] tel:[phone] [facility] No Information Nov-0 4-200 8 Krishnasamy Misael. [facility] [address] [facility], [place], [place], [facility], [place]. tel:[phone] Referring Provider: Jeanette Gonsales OD, [address] [place] [address], [address]. tel:[phone] Office/outpat ient Visit, [facility], [address] [place] [address] [address], [place], [place], [id number], [place] tel:[phone] [facility] No Information Sep-0 9-200 8 Krishnasamy Misael. [address] [place] [address], [place], [facility], [place]. tel:[phone] Referring Provider: Jeanette Gonsales OD, [address] [place], [address]. tel:[phone] Office/outpat ient Visit, [facility], [address] [address], [place], [place], [address], [place] tel:[phone] [facility] No Information 8 Christa Oharahil. [address], [address], . tel:[phone] Referring Provider: Jeanette Gonsales OD, [address] [place], [address]. tel:[phone] [facility], [address] [facility], [place], [place], [id number], tel:[phone] SEC [facility] No Information 8 Christa Oharahil. [address], [address], . tel:[phone] Referring Provider: Jeanette Gonsales OD, [address] [place] [address], [address]. tel:[phone] Family History Family Member Type Diagnosis Age At Onset No Information Payers Payer name Insurance type Covered green party ID Authoriza tion(s) No Information Social [...]
[2024-12-07 09:37] VITALS: BP 118/78; PULSE 86; RESP 18; TEMP 36.6; O2SAT 98
[2024-12-07] MEDS: LACTATED RINGERS 1,000 ML 150 ML IV CONT (09:46)
--- NOTE | 2024-12-07 12:49 | SUR.PREOP ---
Following pre-op bedside conversation with Dr. Chiu, Dr. Chiu and patient agree to not move forward with colonoscopy today. Per Dr. Chiu, patient would benefit more from barium enema. Patient to return to hospital at 3pm for enema with radiology.
--- NOTE | 2024-12-07 14:56 | WPDHPUPDATE1 ---
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 This radiologic procedure was already coordinated by the GI lab staff. Results will be followed in our clinic.
== END 2024-12-07 11:10 | disposition home or self-care (01) ==
PROVIDERS: PCP Family Medicine; Visit Provider Internal Medicine Gastroenterology
PROC: 0DJD8ZZ Inspection of Lower Intestinal Tract, Via Natural or Artificial Opening Endoscopic (ICD-10-PCS; CPT 45378; principal; 2024-12-07 10:45)
DX: N32.1 Vesicointestinal fistula (principal)
CPT/HCPCS: J7120

== ENCOUNTER 2024-12-07 14:53 | Outpatient (CLI) | payer MEDICARE, OTHER, SELFPAY ==
--- NOTE | ~2024-12-07 | XR_ITS ---
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 Other specified disorders of the skin and subcutaneous tissues. TECHNIQUE: A director internal control radiograph was obtained. A catheter was inserted into the patient's rectum. Contra st was infused by gravity. Gas was infused by hand pump. A total of 42 fluoroscopic images and 14 ove rhead radiographs were obtained. Fluoroscopy exposure time was 2.1 minutes. Total DAP was 98.512 mGyc m^2 COMPARISON: None. FINDINGS: Contrast extends throughout the colon to the cecum, also opacifying the normal appendix. There is mod erate diverticulosis along the sigmoid colon with a few additional diverticula scattered along the mo re proximal colon. No fixed stricture, abnormal masses concerning mucosal irregularities identified. No evident fistula or other extraluminal extension of contrast. IMPRESSION: 1. Moderate sigmoid predominant diverticulosis. No evident fistula from the colon. Reviewed, dictated and finalized at location A. IMPRESSION: 1. Moderate sigmoid predominant diverticulosis. No evident fistula from the col on.
--- OUTSIDE RECORDS SUMMARY | 2024-12-07 15:11 | XMS_ITS | Continuity of Care Document ---
Author Organization [facility] Address [address] [place] [address] [place] [address] Phone Care Team Providers Care Watershed Tender Name Role Phone Misael Goodwin Unavailable Unavailable Procedures Procedure Date Office/outpatient Visit, Est Office/outpatient Visit, Est Office/outpatient Visit, Est Office/outpatient Visit, Est Office/outpatient Visit, Est Office/outpatient Visit, Est Eye Exam, New Patient Advance Directives Directive Yes / No Effective Date File Name No Information Encounters Encounter Description Practice Location Reason(s) For Visit Diagnoses Date Provider Providers Copied on Encounter Office/outpat ient Visit, [facility] [place], [address] [place] [address] [address], [place], [place], [id number], [place] tel:[phone] [facility] No Information 0-200 9 Blancoishlee Misael. [facility] [address], [address], [place]. tel:[phone] Referring Provider: Jeanette Gonsales OD, [address] [place], [address]. tel:[phone] Office/outpat ient Visit, [facility], [address] [place] [address] [address], [place], [place], [id number], [place] tel:[phone] [facility] [place] No Information 6-200 9 Krishnaspj Misael. [address], [address], [place]. tel:[phone] Referring Provider: Jeanette Gonsales OD, [address] [place] [address], [address]. tel:[phone] Office/outpat ient Visit, [facility], [address] [place] [address] [address], [place], [place], [id number], [place] tel:[phone] SEC [facility] No Information Dec-1 5-200 8 Krishnasamy Misael. 2421 [facility] [place] [address], [place], [place], [facility], [place]. tel:[phone] Referring Provider: Jeanette Gonsales OD, [address] [place] [address], [facility]. tel:[phone] Office/outpat ient Visit, [facility], [address] [place] [address] [address], [place], [place], [id number], [place] tel:[phone] [facility] No Information Nov-0 4-200 8 Krishnasamy Misael. [facility] [address] [facility], [place], [place], [facility], [place]. tel:[phone] Referring Provider: Jeanette Gonsales OD, [address] [place] [address], [address]. tel:[phone] Office/outpat ient Visit, [facility], [address] [place] [address] [address], [place], [place], [id number], [place] tel:[phone] [facility] No Information Sep-0 9-200 8 Krishnasamy Misael. [address] [place] [address], [place], [facility], [place]. tel:[phone] Referring Provider: Jeanette Gonsales OD, [address] [place], [address]. tel:[phone] Office/outpat ient Visit, [facility], [address] [place] [address], [place], [place], [id number], [place] tel:[phone] SEC [facility] No Information 8 Christa Oharahil. [address], [address], . tel:[phone] Referring Provider: Jeanette Gonsales OD, [address] [place], [address]. tel:[phone] [facility], [address] [facility], [place], [place], [id number], tel:[phone] [facility] No Information 8 Christa Oharahil. [address], [address], . tel:[phone] Referring Provider: Jeanette Gonsales OD, [address] [place] [address], [address]. tel:[phone] Family History Family Member Type Diagnosis Age At Onset No Information Payers Payer name Insurance type Covered alliance party ID Authoriza tion(s) No Information Social [...]
--- OUTSIDE RECORDS SUMMARY | 2024-12-07 15:11 | XMS_ITS | Clinical Summary ---
Author Organization [facility] Address [address] [place] [address] Care Team Providers Care Plaster Lather Name Role Phone Unavailable Primary Care Provider Unavailabl e Encounters Date Type Department Care Team Description 11/01/2024 8:55 AM CDT Ancillary Procedure [facility] [address] [place] [address] Jack Maurer MD Kidney stone [...]
== END 2024-12-07 14:54 | disposition home or self-care (01) ==
PROVIDERS: PCP Family Medicine; Visit Provider Internal Medicine Gastroenterology
DX: K57.30 Diverticulosis of large intestine without perforation or abscess without bleeding (principal); L98.8 Other specified disorders of the skin and subcutaneous tissue
CPT/HCPCS: 74280

== ENCOUNTER 2024-12-12 08:45 | Outpatient (CLI) | payer MEDICARE, OTHER, SELFPAY ==
--- OUTSIDE RECORDS SUMMARY | 2024-12-12 08:57 | XMS_ITS | Clinical Summary ---
Author Organization [facility] Address [address] [place] [address] Care Team Providers Care Master Of Ceremonies Name Role Phone Unavailable Primary Care Provider Unavailabl e Encounters Date Type Department Care Team Description 11/01/2024 8:55 AM CDT Ancillary Procedure [facility] [address] [place] [address] Jack Maurer MD Kidney stone [...]
--- OUTSIDE RECORDS SUMMARY | 2024-12-12 08:57 | XMS_ITS | Continuity of Care Document ---
Author Organization [facility] Address [address] [place] [address] [place] [address] Phone Care Team Providers Care Crm Architect Name Role Phone Misael Goodwin Unavailable Unavailable Procedures Procedure Date Office/outpatient Visit, Est Office/outpatient Visit, Est Office/outpatient Visit, Est Office/outpatient Visit, Est Office/outpatient Visit, Est Office/outpatient Visit, Est Eye Exam, New Patient Advance Directives Directive Yes / No Effective Date File Name No Information Encounters Encounter Description Practice Location Reason(s) For Visit Diagnoses Date Provider Providers Copied on Encounter Office/outpat ient Visit, [facility], [address] [place] [address] [address], [place], [place], [id number], [place] tel:[phone] [facility] No Information 0-200 9 Blancoishlee Misael. [facility] [address], [address], [place]. tel:[phone] Referring Provider: Jeanette Gonsales OD, [address] [place], [address]. tel:[phone] Office/outpat ient Visit, [facility], [address] [place] [address] [address], [place], [place], [address], [place] tel:[phone] [facility] [place] No Information 6-200 9 Krishnaspj Misael. [address], [address], [place]. tel:[phone] Referring Provider: Jeanette Gonsales OD, [address] [place] [address], [address]. tel:[phone] Office/outpat ient Visit, [facility], [address] [place] [address] [address], [place], [place], [address], [place] tel:[phone] [facility] No Information Dec-1 5-200 8 Krishnasamy Misael. 2421 [facility] [place] [address], [place], [place], [facility], [place]. tel:[phone] Referring Provider: Jeanette Gonsales OD, [address] [place] [address], [facility]. tel:[phone] Office/outpat ient Visit, [facility], [address] [place] [address] [address], [place], [place], [id number], [place] tel:[phone] [facility] No Information Nov-0 4-200 8 Krishnasamy Misael. [facility] [address] [facility], [place], [place], [facility], [place]. tel:[phone] Referring Provider: Jeanette Gonsales OD, [address] [place] [address], [address]. tel:[phone] Office/outpat ient Visit, [facility], [address] [place] [address] [address], [place], [place], [id number], [place] tel:[phone] [facility] No Information Sep-0 9-200 8 Krishnasamy Misael. [address] [place] [address], [place], [facility], [place]. tel:[phone] Referring Provider: Jeanette Gonsales OD, [address] [place], [address]. tel:[phone] Office/outpat ient Visit, [facility], [address] [place] [address], [place], [place], [address], [place] tel:[phone] [facility] No Information 8 Christa Oharahil. [address], [address], . tel:[phone] Referring Provider: Jeanette Gonsales OD, [address] [place], [address]. tel:[phone] [facility], [address] [facility] [address], [place], [place], [address], tel:[phone] [facility] No Information 8 Christa Oharahil. [address], [address], . tel:[phone] Referring Provider: Jeanette Gonsales OD, [address] [place] [address], [address]. tel:[phone] Family History Family Member Type Diagnosis Age [...]
--- NOTE | 2024-12-12 09:19 | ECHO_ITS ---
Patient Info Name: Fabian Valle Age: 69 years : 1955 Gender: Male Ht: 68 in Wt: 185 lbs BSA: 2.03 m2 HR: 69 bpm BP: 127 / 85 mmHg Technical Quality: Good Exam Date: 12/12/2024 9:27 AM Patient Status: O Admit Date: 12/12/2024 Exam Type: CA echo doppler color flow Complete two-dimensional, color flow and Doppler transthoracic echocardiogram is performed. Senior Power Scheduler: Lizzeth Lorenzo Attending Provider: Connor Senior MD Summary 1. Complete two-dimensional, color flow and Doppler transthoracic echocardiogram is performed. 2. Left ventricular chamber dimension is mildly enlarged. 3. Left ventricular systolic function is normal, estimated at 55-60. 4. The left ventricular diastolic function is grade I diastolic dysfunction. 5. E/e' 7 is not elevated. 6. There is trace aortic valve regurgitation. 7. There is mild mitral valve regurgitation. 8. There is mild tricuspid valve regurgitation. 9. No pulmonary hypertension, estimated pulmonary arterial systolic pressure is 34 mmHg. Left Ventricle E/e' 7 is not elevated. Left ventricular chamber dimension is mildly enlarged. Left ventricular systolic function is normal, estimated at 55-60. The left ventricular diastolic function is grade I diastolic dysfunction. Right Ventricle Right ventricular chamber dimension is normal. Right ventricular systolic function is normal. Left Atria Left atrial chamber dimension is normal. Right Atria Right atrial chamber dimension is normal. Aortic Valve The aortic valve is trileaflet. There is no aortic valve stenosis. There is trace aortic valve regurgitation. Pulmonic Valve There is no pulmonic regurgitation. Mitral Valve There is no mitral valve stenosis. There is mild mitral valve regurgitation. Tricuspid Valve There is mild tricuspid valve regurgitation. No pulmonary hypertension, estimated pulmonary arterial systolic pressure is 34 mmHg. Pericardium/Pleural There is no pericardial effusion. Inferior Vena Cava Normal inferior vena cava with >50% collapse upon inspiration consistent with normal right atrial pressure, 5 mmHg. Aorta The aortic root size at the sinus of Valsalva is normal. Left Ventricular Outflow Tract Name Value Normal LVOT 2D LVOT Diameter 2.0 cm LVOT Doppler LVOT Peak Velocity 130 cm/s LVOT Peak Gradient 7 mmHg LVOT Mean Gradient 3 mmHg LVOT VTI 28 cm LVOT Stroke Volume 87 ml LVOT CO 6.0 l/min LVOT CI 3.0 l/min/m2 Pulmonic Valve Name Value Normal RVOT Doppler RVOT Peak Velocity 65 cm/s RVOT Peak Gradient 2 mmHg PV Doppler PV Peak Velocity 102 cm/s PV Peak Gradient 4 mmHg Mitral Valve Name Value Normal MV Diastolic Function MV E Peak Velocity 72 cm/s MV A Peak Velocity 77 cm/s MV E/A 0.9 MV Decel Time (PW) 230 ms MV Annular TDI MV E/e' (Septal) 9.1 MV E/e' (Lateral) 6.6 MV E/e' (Average) 7.9 Tricuspid Valve Name Value Normal TV Regurgitation Doppler TR Peak Velocity 268 cm/s TR Peak Gradient 29 mmHg Estimated PAP/RSVP RA Pressure 5 mmHg <=5 PA Systolic Pressure 34 mmHg <36 RV Systolic Pressure 34 mmHg <36 Aortic Valve Name Value Normal AV Doppler AV Peak Velocity 143 cm/s AV Peak Gradient 8 mmHg AV Area (Cont Eq Sp) 2.8 cm2 AV DI (Sp) 0.91 AV Regurgitation 2D LVOT Area 3.0 cm2 Ventricles Name Value Normal LV Dimensions 2D/MM IVS Diastolic Thickness (2D) 1.0 cm 0.6-1.0 LVID Diastole (2D) 5.2 cm 4.2-5.8 LVIW Diastolic Thickness (2D) 0.8 cm 0.6-1.0 LVID Systole (2D) 2.9 cm 2.5-4.0 LVOT Diameter 2.0 cm LV Mass (2D Cubed) 179.25 g 88.00-224.00 LV Mass Index (2D Cubed) 89 g/m2 49-115 Relative Wall Thickness (2D) 0.32 <=0.42 LV Fractional Shortening/Ejection Fraction 2D/MM LV Fractional Shortening (2D) 44 % 25-43 LV EF (2D Teichholz) 75 % LV Diastolic Volume (4C MOD) 115 ml LV EF (4C MOD) 58 % LV Diastolic Volume (2C MOD) 111 ml LV EF (2C MOD) 57 % LV Diastolic Volume (BP MOD) 114 ml 62-150 LV Diastolic Volume Index (BP MOD) 56 ml/m2 34-74 LV Systolic Volume (BP MOD) 48 ml 21-61 LV Systolic Volume Index (BP MOD) 24 ml/m2 11-31 LV EF (BP MOD) 58 % 52-72 LV Diastolic Length (4C) 7.9 cm LV Systolic Length (4C) 6.9 cm LV Stroke Volume (4C MOD) 67 ml Atria Name Value Normal LA Dimensions LA Volume (4C A-L) 38 ml LA Volume (BP A-L) 46 ml RA Dimensions RA Systolic Major Duncan Length (4C) 5.5 cm 2.1-2.7 RA Area (4C) 13.0 cm2 <=18.0 Report Signatures
== END 2024-12-12 08:46 | disposition home or self-care (01) ==
PROVIDERS: PCP Family Medicine; Visit Provider Family Medicine
DX: R93.1 Abnormal findings on diagnostic imaging of heart and coronary circulation (principal); I51.7 Cardiomegaly
CPT/HCPCS: 93306